=== PATIENT | male | born 1980 | race Caucasian/White ===

== ENCOUNTER 2021-07-01 22:12 | Emergency (ER) | payer OTHER ==
[~2021-07-01] VITALS: Ht 175.3 cm; Wt 79.4 kg
[2021-07-01 22:24] VITALS: BP_SYST 150
--- NOTE | 2021-07-01 22:35 | NUR ---
Patient to ER bed 6 to gown for evaluation. Side rails up.
[2021-07-01] MEDS ORDERED: NACL 0.9% 1,000 ML IV ONE (22:45)
[2021-07-01] MEDS ORDERED: KETOROLAC TROMETHAMINE 30 MG VIAL IVP ONE (22:45)
[2021-07-01] MEDS ORDERED: ONDANSETRON HCL 4 MG/2 ML VIAL IVP ONE (22:45)
--- NOTE | 2021-07-01 22:45 | NUR ---
Pt MARIANO from home to ED with no significant past medical history presents accompanied by spouse for abdominal pain. Pain came on suddenly at about 10 PM while patient was asleep, waking him up. It is sharp, in his left lower quadrant, continuous, and severe at onset. He had the urge to defecate, got up, and as he was walking to the bathroom collapsed to the floor at home. Patient simultaneously feels pain in his rectum although he never had a bowel movement. He recalls being dizzy, short of breath and diaphoretic. He had concomitant nausea. Recalls all events, denying head strike and loss of consciousness. No headache, neck pain, vomiting, chest pain, flank pain, back pain, seizure, diarrhea, cough, fever or recent illness. This is a first-time occurrence
--- NOTE | 2021-07-01 22:47 | NUR ---
Dr. Zarate bedside for pt eval
[2021-07-01 23:01] LABS: BASOPHILS % (AUTO) 0.5 % (0.0-2.0); EOSINOPHILS # (AUTO) 0.1 K/uL (0.0-0.4); EOSINOPHILS % (AUTO) 1.7 % (0.0-4.0); HEMATOCRIT 43.4 % (36-54); HEMOGLOBIN 15.2 g/dL (14.0-18.0); LYMPHOCYTES # (AUTO) 3.1 K/uL (1.0-5.5); LYMPHOCYTES % (AUTO) 47.5 % (20.5-51.5); MEAN CORPUSCULAR HEMOGLOBIN 30 pg (27-31); MEAN CORPUSCULAR HGB CONC 35 % (32-36); MEAN CORPUSCULAR VOLUME 86 fL (79.0-98.0); MONOCYTES # (AUTO) 0.3 K/uL (0.0-1.0); MONOCYTES % (AUTO) 5.4 % (1.7-9.3); NEUTROPHILS # (AUTO) 2.9 K/uL (1.8-7.7); NEUTROPHILS % (AUTO) 44.9 % (40.0-70.0); PLATELET COUNT (AUTO) 229 K/uL (130-430); RED BLOOD CELL COUNT(AUTO) 5.06 MIL/uL (4.2-6.2); RED CELL DISTRIBUTION WIDTH 12.4 % (9.0-15.0); WHITE BLOOD COUNT (AUTO) 6.5 K/uL (4.8-10.8)
[2021-07-01 23:10] LABS: CALCIUM 9.5 mg/dL (8.4-11.0); CREATININE 1.04 mg/dL (0.55-1.30); POTASSIUM 3.3 mmol/L (3.5-5.1)
[2021-07-01 23:16] LABS: ALBUMIN 4.5 g/dL (3.4-4.8); TOTAL BILIRUBIN 1.5 mg/dL (0.0-1.0)
--- NOTE | 2021-07-01 23:47 | NUR ---
VSS no s/s of acute distress resting on gurney rails up
[2021-07-02] MEDS ORDERED: cefTRIAXone 500 MG in LIDOCAINE 1%, 20 ML MDV 1 ML IM ONE (00:30)
[2021-07-02] MEDS ORDERED: DOXYCYCLINE HYCLATE 100 MG CAPSULE PO ONE (00:30)
--- NOTE | 2021-07-02 00:34 | NUR ---
Doctor performed hemoccult test. Sample brought to lab along with a urine sample.
[2021-07-02 00:54] LABS: BILIRUBIN,URINE NEGATIVE (NEGATIVE); BLOOD, URINE NEGATIVE (NEGATIVE); CLARITY/URINE CLEAR (CLEAR); COLOR,URINE YELLOW (YELLOW); GLUCOSE,URINE NEGATIVE (NEGATIVE); KETONES,URINE TRACE (NEGATIVE); LEUKOCYTE ESTERASE ,URINE NEGATIVE (NEGATIVE); NITRITE, URINE NEGATIVE (NEGATIVE); PROTEIN URINE 1+ (NEGATIVE); UROBILINOGEN,URINE 0.2 (0.2-1.0)
[2021-07-02] MEDS ORDERED: IBUP-1971 PO ×2 (00:56→12:48)
[2021-07-02] MEDS ORDERED: DOXY100C PO ×2 (00:56→12:48)
[2021-07-02 01:03] VITALS: BP_SYST 142
--- NOTE | 2021-07-02 01:03 | NUR ---
Patient given written and verbal discharge instructions and verbalizes understanding. ER MD discussed with patient the results and treatment provided. Patient in stable condition. ID arm band removed. IV catheter removed intact and dressing applied, no active bleeding. Rx of Motrin and Vibramycin given. Patient educated on pain management and to follow up with PMD. Pain Scale 0/10 Opportunity for questions provided and answered. Medication side effect fact sheet provided.
[2021-07-03 23:07] LABS: CHLAMYDIA TRACHOMATIS NAA Negative (Negative); NEISSERIA GONORRHOEAE NAA Negative (Negative)
== END 2021-07-02 01:03 | disposition home or self-care (01) ==
LOC: SED 22:12
DX: K62.89 Other specified diseases of anus and rectum (principal); Z79.899 Other long term (current) drug therapy
CPT/HCPCS: 36415; 74176; 76376; 80053; 81003; 82272; 83605; 83690; 85025; 87491; 87591; 96361; 96365; 96375; 99284; J0696; J1885; J2405; J7030